=== PATIENT | female | born 1970 | race Caucasian/White ===

== ENCOUNTER 2018-03-13 06:44 | Outpatient (CLI) | payer BC | END 2018-03-13 23:59 | disposition home or self-care (01) | LOC: CFH 06:44 | PROVIDERS: ATTEND Internal Medicine Cardiovascular Disease | DX: R07.9 Chest pain, unspecified (principal); I10 Essential (primary) hypertension; F17.200 Nicotine dependence, unspecified, uncomplicated | CPT/HCPCS: 93306 ==

== ENCOUNTER 2018-04-24 10:23 | Day surgery (SDC) | payer BC ==
[~2018-04-24] VITALS: Ht 170.2 cm; Wt 95.5 kg
[2018-04-24 10:58] VITALS: BP 145/97
[2018-04-24] MEDS ORDERED: methylPREDNISolone SOD SUCC 125 MG/2 ML IVPush ONE (11:00)
[2018-04-24] MEDS ORDERED: DIPHENHYDRAMINE 50 MG/ML, 1ML IVPush ONE (11:00)
[2018-04-24] MEDS ORDERED: DICL75TA3 PO (11:11)
[2018-04-24] MEDS ORDERED: FURO20TA3 PO (11:11)
[2018-04-24] MEDS ORDERED: ESTR1TAB15 PO (11:11)
[2018-04-24] MEDS ORDERED: TRAM50TA2 PO (11:12)
[2018-04-24] MEDS ORDERED: PLEASE ENTER HEIGHT AND WEIGHT MC SCH (11:30)
[2018-04-24] MEDS ORDERED: LIDOCAINE 2%, 20ML ONE (11:44)
[2018-04-24] MEDS ORDERED: FENTANYL PF 100 MCG/2ML ONE (11:44)
[2018-04-24] MEDS ORDERED: MIDAZOLAM 1 MG/ML, 5ML ONE (11:44)
[2018-04-24] MEDS ORDERED: DIPHENHYDRAMINE 50 MG/ML, 1ML ONE (12:03)
[2018-04-24] MEDS ORDERED: methylPREDNISolone SOD SUCC 125 MG/2 ML ONE (12:03)
== END 2018-04-24 16:40 | disposition home or self-care (01) ==
LOC: CACL 10:23
PROVIDERS: ATTEND Internal Medicine Cardiovascular Disease
DX: I20.9 Angina pectoris, unspecified (principal); I10 Essential (primary) hypertension; E78.5 Hyperlipidemia, unspecified; Z90.710 Acquired absence of both cervix and uterus; Z98.890 Other specified postprocedural states; Z90.49 Acquired absence of other specified parts of digestive tract; Z72.89 Other problems related to lifestyle; Z72.0 Tobacco use; Z88.8 Allergy status to other drugs, medicaments and biological substances
CPT/HCPCS: 93458; 99156; 99157; C1760; C1769; C1894; J1200; J2250; J2930; J3010; J3490; Q9967